=== PATIENT | male | born 1965 | race Caucasian/White ===

== ENCOUNTER 2020-05-10 03:38 | Emergency (ER) | payer OTHER ==
--- OUTSIDE RECORDS SUMMARY | 2020-05-10 03:46 | XMS ---
:1965 Author Organization [facility] Care Team Providers Name Role Phone Benjy Muhammad MD Unavailable Unavailable ER Unavailable Unavailable Goodman, Zachary H MD Unavailable Unavailable Goodman, Zachary H MD Unavailable Unavailable Goodman, Zachary H MD Unavailable Unavailable Goodman, Zachary H MD Unavailable Unavailable Goodman, Zachary H MD Unavailable Unavailable Goodman, Zachary H MD Unavailable Unavailable Goodman, Zachary H MD Unavailable Unavailable Goodman, Zachary H MD Unavailable Unavailable Goodman, Zachary H MD Unavailable Unavailable Goodman, Zachary H MD Unavailable Unavailable Goodman, Zachary H MD Unavailable Unavailable Goodman, Zachary H MD Unavailable Unavailable Goodman, Zachary H MD Unavailable Unavailable Goodman, Zachary H MD Unavailable Unavailable Re-disclosure Warning The records that you are about to access may contain information from federally- assisted alcohol or drug abuse programs. If such information is present, then the following federally mandated warning applies: This information has been disclosed to you from records protected by federal confidentiality rules (42 CFR part 2). The federal rules prohibit you from making any further disclosure of this information unless further disclosure is expressly permitted by the written consent of the person to whom it pertains or as otherwise permitted by 42 CFR part 2. A general authorization for the release of medical or other information is NOT sufficient for this purpose. The Federal rules restrict any use of the information to criminally investigate or prosecute any alcohol or drug abuse patient.The records that you are about to access may contain highly sensitive health information, the redisclosure of which is protected by Article 27-F of the [facility] Public Health law. If you continue you may haveaccess to information: Regarding HIV / AIDS; Provided by facilities licensed or operated by the [facility] Office of Mental Health; or Provided by the [facility] Office for People With Developmental Disabilities. If such information is present, then the following [facility] mandated warning applies: This information has been disclosed to you from confidential records which are protected by state law. State law prohibits you from making any further disclosure of this information without the specific written consent of the person to whom it pertains, or as otherwise permitted by law. Any unauthorized further disclosure in violation of state law may result in a fine or assisted sentence or both. A general authorization for the release of medical or other information is NOT sufficient authorization for further disclosure. Allergies and Adverse Reactions Type Description Substance Reaction Status Data Source(s ) Drug allergy No Known Medication No Known Medication [facility] Allergies Allergies [place] [facility] Encounters Encounter Providers Location Date Indications Data Source(s ) Emergency Attender: Benjy 04/24/2019 [facility] Larissa Muhammad MDAttender: 01:06:00 PM EDT Brian Montes MD ERAdmitter: - 04/24/2019 [facility] Benjy Muhammad MD 06:13:00 PM EDT Patient discharged. Emergency Attender: Prema Rodriguez 02/09/2019 10:45:00 AM [facility] Barbara: EDT - 02/09/2019 Christian Montes ERAdmitter: Prema Rodriguez 01:22:00 PM T [facility] Medications Medication Brand Start Product Dose Route Administrative Pharmacy [facility] Indications Reaction Description Data Name Date Form Instructions Instructions Source(s) colchicine [id number] 04/24/ 0.6 Oral Nuvan ce 0.6 mg oral 2019 mg 0. 6 mg, = 1 tab, Oral, BID, # 10 tab, 0 Refill(s), for gout pain, Pharmacy: [facility]/pharmacy #[id number], 1 tab Oral BID,PRN:for gout pain Health - tablet 06:40: Brian 34 PM [facility] indomethaci [id number] .0 Oral Nuva nce n 25 mg 2019 mg 25 mg, = 1 cap, Oral, TID, # 30 cap, 0 Refill(s), for gout pain, Pharmacy: [facility]/pharmacy #[id number], 1 cap Oral TID,PRN:for gout pain Health - oral 04:58: [place] capsule 00 PM [facility] Insurance Providers Payer name Policy type Policy ID Covered Covered democrat's Policy P janes / Coverage democrat ID relationship to [employer] ormation type [employer] [id number] FIRST Problems, Conditions, and Diagnoses Code Display Name Description Problem Type Effective Dates Data Source(s) M25.562 Pain in left Pain in left knee Diagnosis 04/24/2019 [facility] - knee 01:06:00 PM EDT [facility] Results ID Date Data Source [id number] 04/24/2020 11:23:00 AM EDT [facility] Name Value Range Interpretation Description Data Sup porting Code Source(s) Document(s ) SARS [facility] coronavirus 2 RNA This lab was ordered by [facility] ital and reported by [facility]. ID Date Data Source [id number] 02/17/2020 11:38:00 AM EDT [facility] Name Value Range Interpretation Description Data Sup porting Code Source(s) Document(s ) SARS [facility] coronavirus 2 RNA This lab was ordered by [facility] ital and reported by [facility]. ID Date Data Source [id number] 04/24/2019 04:36:[address] [facility] Name Value Range Interpretation Description Data Sup porting Code Source(s) Document(s ) Uric Acid 7.7 mg/dL 2.3-7.[address] [facility] ID Date Data Source [id number] 04/24/2019 04:36:[address] [facility] Name Value Range Interpretation Description Data Sup porting Code Source(s) Document(s ) Glucose Lvl 104 65-99 HI [place] mg/dL [facility] BUN 11.0 6.0-20.0 NO [place] mg/dL [facility] Creatinine 1.03 0.70-1.2 NO [place] mg/dL 0 [facility] BUN/Creat 10.7 7.0-29.0 [place] Ratio ratio [facility] Sodium Lvl 136 136-145 NO [place] mmol/L [facility] Potassium Lvl 4.2 3.5-5.1 NO [place] mmol/L [facility] Chloride 103 98-107 NO [place] mmol/L [facility] CO2 27 23-29 NO [place] mmol/L [facility] AGAP 6 5-[address] [facility] Calcium Lvl 9.6 8.6-10.0 NO [place] mg/dL [facility] Total Protein 7.5 6.0-8.3 NO [place] gm/dL [facility] Albumin Lvl 3.8 3.5-5.0 NO [place] gm/dL [facility] Glob 3.7 2.0-4.5 NO [place] gm/dL [facility] A/G Ratio 1.0 1.0-2.[address] [place] [address] [facility] Bili Total 0.7 0.3-1.2 NO [place] mg/dL [facility] Alk Phos 91 IU/L 38-[address] [facility] AST 20 IU/L 15-[address] [facility] ALT 30 IU/L 7-[address] [facility] ID Date Data Source [id number] 04/24/2019 04:29:[address] [facility] Added by Discern Rule GLB_ADD_GFR_CMP Name Value Range Interpretation Code Description Data Catarina rce(s) Supporting Document(s ) eGFR-AA >60 >=60 NO [facility] Health mL/min/[address] eGFR-MORENO >60 >=60 [facility]/[address] [place] [address] ID Date Data Source [id number] 04/24/2019 04:19:[address] [facility] Name Value Range Interpretation Description Data Sup porting Code Source(s) Document(s ) Neut Auto 75.1 % 50.0-80.[address] [facility] Lymph Auto 13.5 % 14.0-44.[address] [facility] [place] Auto 10.6 % 0.0-12.[address] [facility] Eos Auto 0.4 % 0.0-7.[address] [facility] Baso Auto 0.4 % 0.0-3.[address] [facility] Neut 5.6 2.0-8.4 NO [place] Absolute x10(3)/[facility] Lymph 1.0 0.6-4.8 NO [place] Absolute x10(3)/[facility] [place] 0.8 0.0-1.1 NO [place] Absolute x10(3)/[facility] Eos Absolute 0.0 0.0-0.5 NO [place] x10(3)/[facility] Baso 0.0 0.0-0.3 NO [place] Absolute x10(3)/[facility] ID Date Data Source [id number] 04/24/2019 04:19:[address] [facility] Name Value Range Interpretation Description Data Sup porting Code Source(s) Document(s ) WBC 7.4 4.0-10.5 NO [place] x10(3)/[facility] RBC 4.95 4.70-6.00 NO [place] x10(6)/[facility] Hgb 14.9 13.5-17.0 NO [place] gm/dL [facility] Hct 44.3 % 38.0-51.[address] [facility] MCV 90 fL 80-[address] [facility] MCH 30.2 pg 26.0-34.[address] [facility] MCHC 33.7 32.0-36.0 NO [facility] gm/dL [facility] RDW 12.8 % 11.0-15.[address] [facility] Platelet 234 150-400 NO [facility] x10(3)/[facility] MPV 8.3 fL 8.5-13.[address] [facility] ID Date Data Source [id number] 05/01/2019 02:05:[address] [facility] 1965 [phone] Microbiology - Wound/Misc CulturesPROCED URE: Culture,Body Fluid with Gram StainSOURCE: Joint Fl ENA DY SITE: Knee LeftCOLLECTED DATE/TIME: 04/24/2019 15:55 EDT RECEIVED DATE/TIME: 04/24/2019 16:01 EDTSTART DATE/TIME: 04/24/2019 1 6:01 EDT FREE TEXT SOURCE:ORDERING PHYSICIAN: Jb AYALA, Benjy Johnson* FINAL REPORTSFinal Report []Reported Date/Time: 05/01/2019 14:05 EDTNo growth aerobically or anaerobically in 7 days.PRELIMINARY REPORTSPreliminar y Report []Reported Date/Time: 04/29/2019 11:28 EDTNo growth aerobically or anaero bically in 5 days. Continuing incubationPreliminary Report []Reported Date/Time: 04/28/2019 08:34 EDTNo growth aerobically or anaerobically in 4 days. Continuing incubationPreliminary Report []Reported Date/Time: 04/27/2019 08:55 ED TThis culture is in progress and is being reincubated Continuing incubationPrelim inary Report []Reported Date/Time: 04/26/2019 10:17 EDTNo growth aerobically or anaero bically in 2 days. Continuing incubationPreliminary Report []Reported Date/Time: 04/25/2019 11:30 EDTNo growth to date Continuing incubationSTAINSG S []Reported Date/Time: 04/24/2019 16:43 EDTModerate White Blood Cells No organi sms seen. Name Value Range Interpretation Code Description Data Catarina rce(s) Supporting Document(s ) ID Date Data Source [id number] 04/27/2019 07:20:[address] [facility] Name Value Range Interpretation Code Description Data Catarina rce(s) Supporting Document(s ) Uric Acid <8.0 NA [facility] This test [facility] performed at[facility] [place], [place] BF Laterality NA [facility] ID Date Data Source [id number] 04/24/2019 05:49:[address] [facility] Name Value Range Interpretation Description Data Sup porting Code Source(s) Document(s ) Crystal BF Type NO [facility] Crystal BF NO [facility] Crystal Desc NO [facility] BF Laterality NA [facility] ID Date Data Source [id number] 04/24/2019 04:39:[address] [facility] Name Value Range Interpretation Description Data Sup porting Code Source(s) Document(s ) Color BF [address] [facility] Appear BF [address] [facility] WBC BF 1 09075 0-200 HI [facility] cells/[facility] RBC BF 1 7574 0-200 HI [facility] cells/[facility] BF Type Tube [address] [facility] BF Laterality [facility] Procedure Social History Code Duration Value Status Description Data Source(s ) Smoking 04/24/2019 Never smoked completed Never smoked Itajarosojuan manuel alth - 03:47:35 PM EDT tobacco tobacco (finding) [facility] (finding) [facility] Vital Signs ID Date Data Source UNK Name Value Range Interpretation Code Description Data Source(s) Respiratory rate 17 br/min 14-20 Normal (applies to 17 br/min [facility] br/min non-numeric results) - [facility] Mean blood 114 mm[Hg] 114 mm[Hg] [facility] pressure by - [facility] Diastolic blood 92 mm[Hg] 60-90 mmHg 92 mm[Hg] [facility] ealth pressure - [facility] Systolic blood 159 mm[Hg] 90-130 mmHg Above high normal 159 mm[Hg] [facility] pressure - [facility] Oxygen saturation 96 % 94-100 % Normal (applies to 96 % [facility] [employer] in Blood non-numeric results) - [facility] Postductal by [place] Pulse oximetry Medical nter Heart rate 90 bpm 60-100 bpm Normal (applies to 90 bpm [facility] non-numeric results) - [facility] Body weight 95.55 kg 95.55 kg [facility] Measured - [facility] Body height 173 cm 173 cm [facility] - [facility] Body mass index 31.93 kg/m2 31.93 kg/m2 [facility] (BMI) [Ratio] - [facility] Oxygen saturation 96 % 94-100 % Normal (applies to 96 % [facility] [employer] in Blood non-numeric results) - [facility] Postductal by [place] Pulse oximetry Medical nter Respiratory rate 19 br/min 14-20 Normal (applies to 19 br/min [facility] br/min non-numeric results) - [facility] Heart rate 113 bpm 60-100 bpm Above high normal 113 bpm [facility] - [facility] Body mass index 31.93 kg/m2 31.93 kg/m2 [facility] (BMI) [Ratio] - [facility] Oral temperature 99 [degF] 96.4-99.1 Normal (applies to 99 [degF] [facility] DegF non-numeric results) - [facility] Diastolic blood 91 mm[Hg] 60-90 mmHg Above high normal 91 mm[Hg] [facility] pressure - [facility] Systolic blood 156 mm[Hg] 90-130 mmHg Above high normal 156 mm[Hg] [facility] pressure - [facility] Patient Treatment Plan of Care Planned Activity Planned Date Details Description Data Source (s) colchicine 0.6 mg oral 04/24/2019 06:40:34 [facility] - tablet PM EDT [facility] indomethacin 25 mg oral 04/24/2019 04:58:00 [employer] - capsule PM EDT [facility]
[2020-05-10] MEDS ORDERED: LIDOCAINE 5% TOPICAL PATCH TP ONE (03:52)
[2020-05-10] MEDS ORDERED: diazePAM 2 MG TABLET PO ONE (03:52)
[2020-05-10] MEDS ORDERED: KETOROLAC TROMETHAMINE 60 MG/2 ML VIAL IM ONE (03:53)
--- NOTE | 2020-05-10 03:55 | PDOC ---
History of Present Illness - General Chief Complaint: Pain, Acute Stated Complaint: PAIN Time Seen by Provider: 05/10/20 03:54 - History of Present Illness Initial Comments: 54 YOM h/o HLD, HTN, CAD on stent on brilinta presents with head pain and abdominal pain since yesterday. Patient reports he has pain in the back of his head and neck which is worse with lateral rotation of his head. Denies trauma to the area, no radiation, never had pain like this before. He reports his abdominal pain is located in lower abdomen, is worse with rising from bed or sitting or attempting to defecate. Reports last bm was yesterday, still passing flatus. Concerns he is constipated. Denies fever or chills, N/V/D, chest pain or shortness of breath. Constitutional: No Weight Change, No Fever, No Chills, No Night Sweats, No Fatigue, No Malaise ENT/Mouth: No Hearing Changes, No Ear Pain, No Nasal Congestion, No Sinus Pain, No Hoarseness, No sore throat, No Rhinorrhea, No Swallowing Difficulty Eyes: No Eye Pain, No Swelling, No Redness, No Foreign Body, No Discharge, No Vision Changes Cardiovascular: No Chest Pain, No SOB, No PND, No Dyspnea on Exertion, No Orthopnea, No Claudication, No Edema, No Palpitations Respiratory: No Cough, No Sputum, No Wheezing, No Smoke Exposure, No Dyspnea Gastrointestinal: No Nausea, No Vomiting, No Diarrhea, No Constipation, No Pain, No Heartburn, No Anorexia, No Dysphagia, No Hematochezia, No Melena, No Flatulence, No Jaundice Genitourinary: No Dyspareunia, No Dysuria, No Urinary Frequency, No Hematuria, No Urinary Incontinence, No Urgency, No Flank Pain, No Urinary Flow Changes, No Hesitancy Musculoskeletal: No Arthralgias, No Myalgias, No Joint Swelling, No Joint Stiffness, No Back Pain, No Neck Pain, No Injury History Skin: No Skin Lesions, No Pruritis, No Hair Changes, No Breast/Skin Changes, No Nipple Discharge Neuro: No Weakness, No Numbness, No Paresthesias, No Loss of Consciousness, No Syncope, No Dizziness, No Headache, No Coordination Changes, No Recent Falls Psych: No Anxiety/Panic, No Depression, No Insomnia, No Personality Changes, No Delusions, No Rumination, No SI/HI/AH/VH, No Social Issues, No Memory Changes, No Violence/Abuse Hx., No Eating Concerns Heme/Lymph: No Bruising, No Bleeding, No Transfusions History, No Lymphadenopathy Endocrine: No Polyuria, No Polydipsia, No Temperature Intolerance Past History - Medical History Allergies/Adverse Reactions: Allergies Allergy/AdvReac Type Severity Reaction Status Date / Time No Known Allergies Allergy Verified 05/10/20 03:54 Home Medications: Ambulatory Orders Amoxicillin - [Amoxicillin 250mg Capsule -] 250 mg PO ASDIR 04/03/16 Oxycodone HCl/Acetaminophen [Percocet 5-325 mg Tablet] 1 - 2 tab PO Q4H 04/03/16 HTN: Yes (no meds) - Immunization History Immunization Up to Date: Yes - Psycho-Social/Smoking History Smoking History: Never smoked *Physical Exam - Physical Exam General Appearance: Yes: Nourished, Appropriately Dressed, Mild Distress HEENT: positive: EOMI, FREDA, Normal ENT Inspection, Normal Voice, Symmetrical, TMs Normal, Pharynx Normal, Other (patient is ttp at posterior head on right side) Neck: positive: Trachea midline, Normal Thyroid Respiratory/Chest: positive: Lungs Clear, Normal Breath Sounds Cardiovascular: positive: Regular Rhythm, Regular Rate, S1, S2 Gastrointestinal/Abdominal: positive: Normal Bowel Sounds, Tender, Flat, Soft, Tenderness Musculoskeletal: positive: Normal Inspection, CVA Tenderness Extremity: positive: Normal Capillary Refill, Normal Inspection Integumentary: positive: Normal Color, Dry, Warm Neurologic: positive: head of maintenance II-XII NML intact, Fully Oriented, Alert, Normal Mood/Affect, Normal Response, Motor Strength 5/5 Medical Decision Making - Medical Decision Making 54 YOM h/o htn, hld, CAD w stent presents with head pain and abdominal pain - vitals wnl - exam reveals ttp in posterior right head and suprapubic - will do upright and flat radiograph, miralax, docusate, toradol for pain control and reassess 05/10/20 06:40 Patient reports that pain is decreased by 50% after receiving pain meds Does not yet express the urge to defecate XR wnl will dc patient to follow up with pcp Discharge - Discharge Information Problems reviewed: Yes Clinical Impression/Diagnosis: Abdominal pain Condition: Good Disposition: HOME - Admission No - Follow up/Referral - Patient Discharge Instructions Patient Printed Discharge Instructions: Constipation Additional Instructions: You were seen in the ER for posterior head pain and constipation/abdominal pain. While here you received and XRAY of your chest and abdomen as well as a urinanalysis. You also received pain medication for you symptoms. Your xray and urinanalysis were unremarkable. You reported that your pain had decreased by 50%. You were considered medically stable and safe to return home. When you return home you may use over the counter pain medication to control you head pain. Please follow the instructions on the label and dont take more than the recommended dose. To address your constipation you you make take miralaxx and docusate senna, please follow the instructions on the label and dont take more than the recommended dose. If your symptoms persist please follow up with your primary care provider. WHAT YOU NEED TO KNOW: Constipation is when you have hard, dry bowel movements, or you go longer than usual between bowel movements. DISCHARGE INSTRUCTIONS: Call your doctor if: You have blood in your bowel movements. You have a fever and abdominal pain with the constipation. Your constipation gets worse. You start to vomit. You have questions or concerns about your condition or care. Medicines: Medicine such as a laxative may help relax and loosen your intestines to help you have a bowel movement. Your provider may recommend you only use laxatives for a short time. Long-term use may make your bowels dependent on the medicine. Take your medicine as directed. Contact your healthcare provider if you think your medicine is not helping or if you have side effects. Tell him of her if you are allergic to any medicine. Keep a list of the medicines, vitamins, and herbs you take. Include the amounts, and when and why you take them. Bring the list or the pill bottles to follow-up visits. Carry your medicine list with you in case of an emergency. WHAT YOU NEED TO KNOW: An acute headache is pain or discomfort that starts suddenly and gets worse quickly. You may have an acute headache only when you feel stress or eat certain foods. Other acute headache pain can happen every day, and sometimes several times a day. DISCHARGE INSTRUCTIONS: Return to the emergency department if: You have severe pain. You have numbness or weakness on one side of your face or body. You have a headache that occurs after a blow to the head, a fall, or other trauma. You have a headache, are forgetful or confused, or have trouble speaking. You have a headache, stiff neck, and a fever. Contact your healthcare provider if: You have a constant headache and are vomiting. You have a headache each day that does not get better, even after treatment. You have changes in your headaches, or new symptoms that occur when you have a headache. You have questions or concerns about your condition or care. - Post Discharge Activity
[2020-05-10 03:56] VITALS: TEMP 98.3; BMI 31.1
[2020-05-10] MEDS ORDERED: diazePAM 2 MG TABLET ONE (04:02)
[2020-05-10] MEDS ORDERED: KETOROLAC TROMETHAMINE 60 MG/2 ML VIAL ONE (04:03)
[2020-05-10] MEDS ORDERED: LIDOCAINE 5% TOPICAL PATCH ONE (04:03)
[2020-05-10] MEDS ORDERED: DOCUSATE NA 100 MG/10 ML UNIT-DOSE CUPS PO ONE (04:20)
[2020-05-10] MEDS ORDERED: POLYETHYLENE GLYCOL 3350 119 GM BTL PO ONE (04:20)
[2020-05-10] MEDS ORDERED: LACTULOSE 20 GM/30 ML UDC (FOR ORAL USE ONLY) PO ONE (04:32)
[2020-05-10 04:33] LABS: EPI CELLS 0 /uL (0-25.1); HYALINE CASTS 0 /uL (0-3.1); PH,URINE 5.5 (5.0-8.0); URINE APPEARANCE CLEAR; URINE BACTERIA 1 /uL (0-1359); URINE BILIRUBIN NEGATIVE (NEGATIVE); URINE COLOR YELLOW; URINE GLUCOSE (UA) NEGATIVE (NEGATIVE); URINE KETONE NEGATIVE (NEGATIVE); URINE LEUK ESTERASE NEGATIVE (NEGATIVE); URINE NITRITE NEGATIVE (NEGATIVE); URINE PROTEIN NEGATIVE (NEGATIVE); URINE RBC 22 /uL (0-23.9); URINE UROBILINOGEN 0.2 mg/dL (0.2-1.0); URINE WBC 1 /uL (0-25.8)
[2020-05-10] MEDS ORDERED: LACTULOSE 20 GM/30 ML UDC (FOR ORAL USE ONLY) ONE (05:15)
[2020-05-10] MEDS ORDERED: DOCUSATE SODIUM 100 MG CAPSULE (FP) PO ONE (05:16)
--- NOTE | 2020-05-10 05:45 | PDOC ---
Attending Attestation - Resident Resident Name: Nestor Stockton - ED Attending Attestation I have performed the following: I have examined & evaluated the patient, The case was reviewed & discussed with the resident, I agree w/resident's findings & plan - HPI HPI: 05/10/20 05:40 Pt comes with neck pain and 1 day of constipation. Pt has no hx of abd surg and he has no hx of heavy liftin, groin pain or hernia ventral or umbilical or otherwise. - Physicial Exam PE: 05/10/20 05:44 Normal exam. Pt has no rebound and no guarding. Pt has no flank pain heart and lungs normal no ext swelling heent: normal - Medical Decision Making 05/10/20 05:45 Pt will have a UA because he mentions that he has to push to pee also he will get pain meds and mm relaxants for the pain he will get a KUB to eval his abdomen and constipation 05/10/20 06:49 FUA normal; pt will be discharged home Discharge - Discharge Information Problems reviewed: Yes Clinical Impression/Diagnosis: Muscle spasms of neck Constipated Qualifiers: Constipation type: unspecified constipation type Qualified Code(s): K59.00 - Constipation, unspecified Abdominal pain Qualifiers: Abdominal location: generalized Qualified Code(s): R10.84 - Generalized abdominal pain Condition: Good Disposition: HOME - Additional Discharge Information Prescriptions: Lidocaine 5% Patch [Lidoderm Patch -] 1 patch TP DAILY #30 patch - Follow up/Referral - Patient Discharge Instructions Patient Printed Discharge Instructions: Eating a Diet Rich in Fruits and Vegetables, Constipation, DI for Muscle Spasm Additional Instructions: You were seen in the ER for posterior head pain and constipation/abdominal pain. While here you received and XRAY of your chest and abdomen as well as a urinanalysis. You also received pain medication for you symptoms. Your xray and urinanalysis were unremarkable. You reported that your pain had decreased by 50%. You were considered medically stable and safe to return home. When you return home you may use over the counter pain medication to control you head pain. Please follow the instructions on the label and dont take more than the recommended dose. To address your constipation you you make take miralaxx and docusate senna, please follow the instructions on the label and dont take more than the recommended dose. If your symptoms persist please follow up with your primary care provider. WHAT YOU NEED TO KNOW: Constipation is when you have hard, dry bowel movements, or you go longer than usual between bowel movements. DISCHARGE INSTRUCTIONS: Call your doctor if: You have blood in your bowel movements. You have a fever and abdominal pain with the constipation. Your constipation gets worse. You start to vomit. You have questions or concerns about your condition or care. Medicines: Medicine such as a laxative may help relax and loosen your intestines to help you have a bowel movement. Your provider may recommend you only use laxatives for a short time. Long-term use may make your bowels dependent on the medicine. Take your medicine as directed. Contact your healthcare provider if you think your medicine is not helping or if you have side effects. Tell him of her if you are allergic to any medicine. Keep a list of the medicines, vitamins, and herbs you take. Include the amounts, and when and why you take them. Bring the list or the pill bottles to follow-up visits. Carry your medicine list with you in case of an emergency. WHAT YOU NEED TO KNOW: An acute headache is pain or discomfort that starts suddenly and gets worse quickly. You may have an acute headache only when you feel stress or eat certain foods. Other acute headache pain can happen every day, and sometimes several times a day. DISCHARGE INSTRUCTIONS: Return to the emergency department if: You have severe pain. You have numbness or weakness on one side of your face or body. You have a headache that occurs after a blow to the head, a fall, or other trauma. You have a headache, are forgetful or confused, or have trouble speaking. You have a headache, stiff neck, and a fever. Contact your healthcare provider if: You have a constant headache and are vomiting. You have a headache each day that does not get better, even after treatment. You have changes in your headaches, or new symptoms that occur when you have a headache. You have questions or concerns about your condition or care. - Post Discharge Activity Work/Back to School Note: Back to Work
[2020-05-10 06:56] VITALS: BP 113/82; PULSE 62
[2020-05-10] MEDS ORDERED: LIDOCAINE PATCH REMOVAL MC SCH (22:00)
== END 2020-05-10 06:58 | disposition home or self-care (01) ==
LOC: JER 03:38
PROC: 3E0233Z Introduction of Anti-inflammatory into Muscle, Percutaneous Approach (ICD-10-PCS; principal; 2020-05-10)
PROC: 3E033NZ Introduction of Analgesics, Hypnotics, Sedatives into Peripheral Vein, Percutaneous Approach (ICD-10-PCS; 2020-05-10)
PROC: 3E033GC Introduction of Other Therapeutic Substance into Peripheral Vein, Percutaneous Approach (ICD-10-PCS; 2020-05-10)
DX: R10.9 Unspecified abdominal pain (principal)
CPT/HCPCS: 74019-TC-FY; 81003; 99285-25

== ENCOUNTER 2020-05-10 12:25 | Emergency (ER) | payer OTHER ==
--- NOTE | 2020-05-10 12:40 | PDOC ---
History of Present Illness - General Chief Complaint: Pain Stated Complaint: ABD PAIN Time Seen by Provider: 05/10/20 12:39 - History of Present Illness Initial Comments: 05/10/20 12:50 54yo M w/ PMHx 3stents at [facility]) this summer and presented this AM for the same lower ABD discomfort and constipation bounces back today with worsening lower ABD pain and inability to have a BM. He reports a small BM yesterday that did not feel like he emptied completely. Reports no hx of kidney stones, pain w/ urination, incomplete emptying except for today. No recent illness, fever, rash, or sore throat 05/10/20 13:31 Past History - Medical History Allergies/Adverse Reactions: Allergies Allergy/AdvReac Type Severity Reaction Status Date / Time No Known Allergies Allergy Verified 05/10/20 12:31 Home Medications: Ambulatory Orders Docusate Sodium [Colace] 100 mg PO HS #60 capsule MDD 1 05/10/20 Lidocaine 5% Patch [Lidoderm Patch -] 1 patch TP DAILY #30 patch 05/10/20 Polyethylene Glycol 3350 [Miralax (For Bowel Prep) -] 255 gm PO DAILY 30 Days #1 btl 05/10/20 COPD: No HTN: Yes (no meds) - Immunization History Immunization Up to Date: Yes - Psycho-Social/Smoking History Smoking History: Never smoked Have you smoked in the past 12 months: No Review of Systems - Review of Systems Able to Perform ROS?: Yes Is the patient limited Kinyarwanda proficient: Yes Constitutional: Yes: Night Sweats (on presentation only). No: Chills, Diaphoresis, Fever HEENTM: No: Recent change in vision, Throat Swelling Respiratory: No: Cough, Shortness of Breath Cardiac (ROS): No: Symptoms Reported, Chest Pain ABD/GI: Yes: Symptoms Reported, Abd. Pain w/ defecation (pain when trying to have a BM today), Constipated, Nausea, Vomiting, Abdominal cramping (severe, intermittent). No: Diarrhea, Indigestion : Yes: Hematuria (microscopic - this is because of her UA on prior presentation). No: Burning, Dysuria, Testicular Swelling, Testicular Pain Musculoskeletal: No: Back Pain, Muscle Pain Integumentary: No: Bruising, Change in Color, Rash Neurological: No: Headache, Numbness Endocrine: No: Symptoms Reported Hematologic/Lymphatic: No: Symptoms Reported All Other Systems: Reviewed and Negative *Physical Exam - Vital Signs Last Vital Signs Temp Pulse Resp BP Pulse Ox 98 F 87 18 150/95 99 05/10/20 12:28 05/10/20 12:28 05/10/20 12:28 05/10/20 12:28 05/10/20 12:28 - Physical Exam General Appearance: Yes: Nourished, Appropriately Dressed, Mild Distress HEENT: positive: FREDA, Normal Voice, Hearing Grossly Normal Neck: positive: Trachea midline, Supple Respiratory/Chest: positive: Lungs Clear, Normal Breath Sounds. negative: Chest Tender, Respiratory Distress Cardiovascular: positive: Regular Rhythm, Regular Rate Gastrointestinal/Abdominal: positive: Decreased BS, Protuberent, Distended. negative: Normal Bowel Sounds, Pulsatile Mass Musculoskeletal: positive: Normal Inspection. negative: CVA Tenderness, CVA Tenderness (R), CVA Tenderness (L) Extremity: positive: Normal Capillary Refill, Normal Inspection, Normal Range of Motion Integumentary: positive: Normal Color, Warm, Clammy Neurologic: positive: Fully Oriented, Alert, Normal Response, Motor Strength 5/5 Procedures - Additional Procedures Progress: 05/10/20 18:45 Manual disimpaction + 2 fleet enemas resulted in loosening of the "plug." He reports great relief and easy urination. Heart Score/ECG Review - Electrocardiogram EKG: Normal ED Treatment Course - LABORATORY CBC & Chemistry Diagram: 05/10/20 13:20 05/10/20 13:20 Medical Decision Making - Medical Decision Making 05/10/20 14:08 54yo M bounceback lower ABD pain and no BM w/ XRAY showing dilated bowel loops. Pt reports urge to defecate but cannot produce stool. pt dry heaved multiple times during interview -> zofran no pain w/ urination, hx of kidney stones, gross hematuria, renal fxn good -> unlikely kidney stone. no hx prostate exam -> possible BPH. however, no incomplete emptying lactate normal, no hx of AF -> unlikely mesenteric ischemia. not passing gas, no BM, lower ABD pain - working up SBO vs constipation. 05/10/20 14:29 05/10/20 16:03 CT read: large fecal retention. will try glycerin suppository and PO lactulose and reassess. 05/11/20 13:34 disimpaction successful to loosen fecal plug -> pt was able to move bowels somewhat. feels tremendous relief. will DC. Discharge - Discharge Information Problems reviewed: Yes Clinical Impression/Diagnosis: Fecal impaction Disposition: HOME - Admission No - Additional Discharge Information Prescriptions: Docusate Sodium [Colace] 100 mg PO HS #60 capsule MDD 1 Polyethylene Glycol 3350 [Miralax (For Bowel Prep) -] 255 gm PO DAILY 30 Days #1 btl - Follow up/Referral Referrals: Fabiola Sue MD [Primary Care Provider] - Balwinder Kim MD [Staff Physician] - - Patient Discharge Instructions Patient Printed Discharge Instructions: DI for Fecal Impaction, Fecal Impaction Additional Instructions: You were seen in the ED today for fecal impaction. We manually disimpacted part of your stool burden, but there is a large volume remaining. Please start taking daily Miralax until you successfully evacuate your bowels. You may use an enema to assist with the passage of your stool burden. Please come back if the symptoms return. Please follow up with Dr Kim within 48hours of leaving the ED today. - Post Discharge Activity
[2020-05-10 12:45] VITALS: BMI 31.1
--- OUTSIDE RECORDS SUMMARY | 2020-05-10 12:48 | XMS ---
:1965 Author Organization [facility] Care Team Providers Name Role Phone Benjy Muhammad MD Unavailable Unavailable ER Unavailable Unavailable Laporte, Zachary H MD Unavailable Unavailable Laporte, Zachary H MD Unavailable Unavailable Laporte, Zachary H MD Unavailable Unavailable Laporte, Zachary H MD Unavailable Unavailable Laporte, Zachary H MD Unavailable Unavailable Laporte, Zachary H MD Unavailable Unavailable Laporte, Zachary H MD Unavailable Unavailable Laporte, Zachary H MD Unavailable Unavailable Laporte, Zachary H MD Unavailable Unavailable Laporte, Zachary H MD Unavailable Unavailable Laporte, Zachary H MD Unavailable Unavailable Laporte, Zachary H MD Unavailable Unavailable Laporte, Zachary H MD Unavailable Unavailable Laporte, Zachary H MD Unavailable Unavailable Re-disclosure Warning [...] is protected by Article 27-F of the [place] State Public Health law. If you continue you may haveaccess to information: Regarding HIV / AIDS; Provided by facilities licensed or operated by the [place] [facility] Office of Mental Health; or Provided by the [facility] Office for People With Developmental Disabilities. If such information is present, then the following [facility] mandated warning applies: This information has been [...] law may result in a fine or penitentiary sentence or both. A general authorization for the release of medical or other information is NOT sufficient authorization for further disclosure. Allergies and Adverse Reactions Type Description Substance Reaction Status Data Source(s ) Drug allergy No Known Medication No Known Medication [facility] Allergies Allergies [facility] Encounters Encounter Providers Location Date Indications Data Source(s ) Emergency Attender: Benjy 04/24/2019 [facility] Larissa Muhammad MDAttender: 01:06:00 PM EDT Brian Montes MD ERAdmitter: - 04/24/[address] [facility] Benjy Muhammad MD 06:13:00 PM EDT Patient discharged. Emergency Attender: Prema Rodriguez [facility]:45[facility]: EDT - 02/09/2019 Christian Montes ERAdmitter: Prema Rodriguez 01:22:00 PM [facility] [place] Medications Medication Brand Start Product Dose Route Administrative Pharmacy [facility] Indications Reaction Description Data Name Date Form Instructions Instructions Source(s) colchicine [id number] 04/24/ 0.6 Oral Nuvan ce 0.6 mg oral 2019 mg 0. 6 mg, = 1 tab, Oral, BID, # 10 tab, 0 Refill(s), for gout pain, Pharmacy: [id number], 1 tab Oral BID,PRN:for gout pain Health - tablet 06:40: Brian 34 PM [facility] indomethaci [id number] .[id number] Oral Nuva nce n 25 mg 2019 mg 25 mg, = 1 cap, Oral, TID, # 30 cap, 0 Refill(s), for gout pain, Pharmacy: [id number], 1 cap Oral TID,PRN:for gout pain Health - oral 04:58: [employer] capsule 00 PM [facility] Insurance Providers Payer name Policy type Policy ID Covered Covered libertarian's Policy P janes / Coverage libertarian ID relationship to [employer] ormation type [employer] [id number] FIRST Problems, Conditions, and Diagnoses Code Display Name Description Problem Type Effective Dates Data Source(s) M25.562 Pain in left Pain in left knee Diagnosis 04/24/2019 [facility] Health - knee 01:06:00 PM EDT [facility] Results ID Date Data Source [id number] 04/24/2020 11:23:00 AM EDT [facility] Name Value Range Interpretation Description Data Sup porting Code Source(s) Document(s ) SARS [facility] coronavirus 2 RNA This lab was ordered by [facility] ital and reported by [facility]. ID Date Data Source [id number] 02/17/2020 11:38:00 AM EDT [facility] Name Value Range Interpretation Description Data Sup porting Code Source(s) Document(s ) SARS [facility] coronavirus 2 RNA This lab was ordered by [facility] ital and reported by [facility]. ID Date Data Source [id number] 04/24/2019 04:36:00 PM EDT [facility] Name Value Range Interpretation Description Data Sup porting Code Source(s) Document(s ) Uric Acid 7.7 mg/dL 2.3-7.6 HI [facility] ID Date Data Source [id number] 04/24/2019 04:36:00 PM EDT [facility] Name Value Range Interpretation Description Data Sup porting Code Source(s) Document(s ) Glucose Lvl 104 65-99 HI [place] mg/dL [facility] BUN 11.0 6.0-20.0 NO [place] mg/dL [facility] Creatinine 1.03 0.70-1.2 NO [place] mg/dL 0 [facility] BUN/Creat 10.7 7.0-29.0 NO [place] Ratio ratio [facility] Sodium Lvl 136 136-145 NO [place] mmol/L [facility] Potassium Lvl 4.2 3.5-5.1 NO [place] mmol/L [facility] Chloride 103 98-107 NO [place] mmol/L [facility] CO2 27 23-29 NO [place] mmol/L [facility] AGAP 6 5-[address] [facility] Calcium Lvl 9.6 8.6-10.0 NO [place] mg/dL [facility] Total Protein 7.5 6.0-8.3 NO [place] gm/dL [facility] Albumin Lvl 3.8 3.5-5.0 NO [place] gm/dL [facility] Glob 3.7 2.0-4.5 NO [place] gm/dL [facility] A/G Ratio 1.0 1.0-2.[address] [address] [facility] Bili Total 0.7 0.3-1.2 NO [place] mg/dL [facility] Alk Phos 91 IU/L 38-126 NO [facility] AST 20 IU/L 15-41 NO [facility] ALT 30 IU/L 7-40 NO [facility] ID Date Data Source [id number] 04/24/2019 04:29:00 PM EDT [place] Added by Discern Rule [id number]_GFR_CMP Name Value Range Interpretation Code Description Data Catarina rce(s) Supporting Document(s ) eGFR-AA >60 >=60 NO [facility] mL/min/[address] eGFR-MORENO >60 >=60 NO [facility] mL/min/[address] ID Date Data Source [id number] 04/24/2019 04:19:00 PM EDT [facility] Name Value Range Interpretation Description Data Sup porting Code Source(s) Document(s ) Neut Auto 75.1 % 50.0-80.0 NO [facility] Lymph Auto 13.5 % 14.0-44.0 LO [facility] Taylor Auto 10.6 % 0.0-12.0 NO [facility] Eos Auto 0.4 % 0.0-7.0 NO [facility] Baso Auto 0.4 % 0.0-3.0 NO [facility] Neut 5.6 2.0-8.4 NO [place] Absolute x10(3)/[facility] Lymph 1.0 0.6-4.8 NO [place] Absolute x10(3)/[facility] Taylor 0.8 0.0-1.1 NO [place] Absolute x10(3)/[facility] Eos Absolute 0.0 0.0-0.5 NO [place] x10(3)/[facility] Baso 0.0 0.0-0.3 NO [place] Absolute x10(3)/[facility] ID Date Data Source [id number] 04/24/2019 04:19:00 PM EDT [facility] Name Value Range Interpretation Description Data Sup porting Code Source(s) Document(s ) WBC 7.4 4.0-10.5 NO [place] x10(3)/[facility] RBC 4.95 4.70-6.00 NO [place] x10(6)/[facility] Hgb 14.9 13.5-17.0 NO [place] gm/dL [facility] Hct 44.3 % 38.0-51.0 NO [facility] MCV 90 fL 80-98 NO [facility] MCH 30.2 pg 26.0-34.0 NO [facility] MCHC 33.7 32.0-36.0 NO Tere gm/dL [facility] RDW 12.8 % 11.0-15.0 NO [facility] Platelet 234 150-400 NO [facility] x10(3)/mc [facility] MPV 8.3 fL 8.5-13.0 LO [facility] ID Date Data Source [id number] 05/01/2019 02:05:00 PM EDT [facility] 1965 [phone] Microbiology - Wound/Misc [...] Supporting Document(s ) ID Date Data Source [id number] 04/27/2019 07:20:00 AM EDT [facility] Name Value Range Interpretation Code Description Data Catarina rce(s) Supporting Document(s ) Uric Acid <8.0 NA [facility] [place], [place] BF Laterality NA [facility] ID Date Data Source [id number] 04/24/2019 05:49:00 PM EDT [facility] Name Value Range Interpretation Description Data Sup porting Code Source(s) Document(s ) Crystal BF Type NO [facility] Crystal BF NO [facility] Crystal Desc NO [facility] BF Laterality NA [facility] ID Date Data Source [id number] 04/24/2019 04:39:00 PM EDT [facility] Name Value Range Interpretation Description Data Sup porting Code Source(s) Document(s ) Color BF 1 NO [facility] Appear BF 1 Clear AB [facility] WBC BF 1 59229 0-200 HI [facility] cells/[facility] RBC BF 1 7574 0-200 HI [facility] cells/[facility] BF Type Tube 1 NA [facility] BF Laterality NA [facility] Procedure Social History Code Duration Value Status Description Data Source(s ) Smoking 04/24/2019 Never smoked completed Never smoked [facility] alth - 03:47:35 PM EDT tobacco tobacco (finding) [facility] (finding) [facility] Vital Signs ID Date Data Source UNK Name Value Range Interpretation Code Description Data Source(s) Respiratory rate 17 br/min 14-20 Normal (applies to 17 br/min [employer] br/min non-numeric results) - [facility] Mean blood 114 mm[Hg] 114 mm[Hg] [facility] pressure by - [facility] Diastolic blood 92 mm[Hg] 60-90 mmHg 92 mm[Hg] [facility] ealth pressure - [facility] Systolic blood 159 mm[Hg] 90-130 mmHg Above high normal 159 mm[Hg] [facility] pressure - [facility] Oxygen saturation 96 % 94-100 % Normal (applies to 96 % [facility] [employer] in Blood non-numeric results) - [facility] Postductal by [place] Pulse oximetry Medical nter Heart rate 90 bpm 60-100 bpm Normal (applies to 90 bpm [facility] non-numeric results) - [facility] Body weight 95.[address] [facility] Measured - [facility] Body height [address] [facility] - [facility] Body mass index 31.93 kg/m2 31.93 kg/m2 [facility] (BMI) [Ratio] - [facility] Oxygen saturation 96 % 94-100 % Normal (applies to 96 % [facility] [employer] in Blood non-numeric results) - [facility]ductal [facility] [place] Pulse oximetry Medical Ce nter Respiratory rate 19 br/min 14-20 Normal (applies to 19 br/min [facility] br/min non-numeric results) - [facility] Heart rate 113 bpm 60-100 bpm Above high normal 113 bpm [facility] - [facility] Body mass index 31.93 kg/m2 31.93 kg/m2 [facility] (BMI) [Ratio] - [facility] Oral temperature 99 [degF] 96.4-99.1 Normal (applies to 99 [degF] [facility] DegF non-numeric results) - [facility] Diastolic blood 91 mm[Hg] 60-90 mmHg Above high normal 91 mm[Hg] [facility] pressure - [facility] Systolic blood 156 mm[Hg] 90-130 mmHg Above high normal 156 mm[Hg] [facility] Patient Treatment Plan of Care Planned Activity Planned Date Details Description Data Source (s) colchicine 0.6 mg oral 04/24/2019 06:40:34 [facility] Health - tablet PM EDT [facility] indomethacin 25 mg oral 04/24/2019 04:58:00 [facility] Health - capsule PM EDT [facility]
[2020-05-10] MEDS ORDERED: ACETAMINOPHEN 1000 MG/100 ML VIAL (NON FORMULARY) IVPB ONE ×2 (13:03→16:41)
[2020-05-10] MEDS ORDERED: LACTATED RINGERS SOLUTION 1000 ML INFUS.BAG IV ONE (13:03)
[2020-05-10] MEDS ORDERED: ACETAMINOPHEN INJECTION 100 ML IVPB ONE ×2 (13:14→17:32)
[2020-05-10] MEDS ORDERED: ONDANSETRON 4 MG/2 ML VIAL IVPUSH ONE (13:19)
[2020-05-10 13:44] LABS: BASO % 0.2 % (0-2.0); HEMATOCRIT 42.9 % (35.4-49); HEMOGLOBIN 14.7 GM/dL (11.7-16.9); LYMPH % 7.2 % (8-40); MCH 30.9 pg (25.7-33.7); MCHC 34.3 g/dl (32.0-35.9); MEAN CELL VOLUME 90.1 fl (80-96); MEAN PLT VOLUME 9.2 fl (7.5-11.1); MONO % 4.1 % (3.8-10.2); NEUT % 87.5 % (42.8-82.8); PLATELET COUNT 276 K/MM3 (134-434); RBC 4.76 M/mm3 (4.00-5.60); RDW 13.1 % (11.9-15.9); WHITE BLOOD COUNT 9.2 K/mm3 (4.0-10.0)
[2020-05-10 14:13] LABS: ALBUMIN 3.9 g/dl (3.4-5.0); ALK PHOS 126 U/L (45-117); ANION GAP 7 MMOL/L (8-16); BILIRUBIN,TOTAL 0.7 mg/dL (0.2-1); BLOOD UREA NITROGEN 18.6 mg/dL (7-18); CALCIUM 9.7 mg/dL (8.5-10.1); CHLORIDE 102 mmol/L (98-107); CO2 27 mmol/L (21-32); CREATININE 1.2 mg/dL (0.55-1.3); GLUCOSE,RANDOM 120 mg/dL (74-106); POTASSIUM 3.6 mmol/L (3.5-5.1); SGOT/AST 19 U/L (15-37); SGPT/ALT 26 U/L (13-61); SODIUM 136 mmol/L (136-145); TOT PROT 7.7 g/dl (6.4-8.2)
--- NOTE | 2020-05-10 15:33 | PDOC ---
Documentation entered by Radha Tineo SCRIBE, acting as scribe for Ramandeep Strickland MD. Ramandeep Strickland MD: This documentation has been prepared by the Rivka khan Sydney, SCRIBE, under my direction and personally reviewed by me in its entirety. I confirm that the documentation accurately reflects all work, treatment, procedures, and medical decision making performed by me. Attending Attestation - Resident Resident Name: Sajan Wilson - ED Attending Attestation I have performed the following: I have examined & evaluated the patient, The case was reviewed & discussed with the resident, I agree w/resident's findings & plan, Exceptions are as noted - HPI HPI: 05/10/20 13:06 Patient is a 54 year old male with a significant past medical history of 3 stents (at [facility]) who presents to the ED again this afternoon with the same lower abdominal discomfort and constipation he was evaluated for this morning. As per patient, he has been experiencing worsening lower abdominal pain since being discharged this morning. He reports having a small bowel movement yesterday. reports significant improvement in his symptoms after tylenol and zofran in the ED. Denies fever, chills, shortness of breath, chest pain, nausea, vomiting, diarrhea, or urinary changes. Allergies: NKDA PCP: Dr. Sue 05/10/20 15:03 - Physicial Exam PE: 05/10/20 15:06 Agree with resident exam. Patient is alert and oriented and in no acute distress. Abdomen is obese, soft, non tender, non distended without guarding or rebound. - Medical Decision Making 05/10/20 15:20 Pt presents to the ED complaining of abdominal pain and constipation. seen in the ED with negative KUB. Presents today with worsening abdominal pain and vomiting. Still unable to pass gas or have BM. Patient does feel better after reglan. CT shows fecal impaction. Patient offered disimpaction, but is currently refusing. Will treat with lactulose and mag citrate and glycerin suppositories. Patient will agree to disimpaction if those treatments are unsuccessful. 05/10/20 15:59 05/10/20 16:02 Discharge - Discharge Information Problems reviewed: Yes Clinical Impression/Diagnosis: Fecal impaction Disposition: HOME - Additional Discharge Information Prescriptions: Docusate Sodium [Colace] 100 mg PO HS #60 capsule MDD 1 Polyethylene Glycol 3350 [Miralax (For Bowel Prep) -] 255 gm PO DAILY 30 Days #1 btl - Follow up/Referral Referrals: Balwinder Kim MD [Staff Physician] - Fabiola Sue MD [Primary Care Provider] - - Patient Discharge Instructions Patient Printed Discharge Instructions: DI for Fecal Impaction, Fecal Impaction Additional Instructions: You were seen in the ED today for fecal impaction. We manually disimpacted part of your stool burden, but there is a large volume remaining. Please start taking daily Miralax until you successfully evacuate your bowels. You may use an enema to assist with the passage of your stool burden. Please come back if the symptoms return. Please follow up with Dr Kim within 48hours of leaving the ED today. - Post Discharge Activity
[2020-05-10] MEDS ORDERED: GLYCERIN 1 RECTAL SUPPOSITORY, ADULT PR ONE (16:02)
[2020-05-10] MEDS ORDERED: LACTULOSE 20 GM/30 ML UDC (FOR ORAL USE ONLY) PO ONE (16:02)
[2020-05-10] MEDS ORDERED: LACTULOSE 20 GM/30 ML UDC (FOR ORAL USE ONLY) ONE (16:05)
[2020-05-10 17:30] VITALS: PULSE 91; TEMP 97.8
[2020-05-10] MEDS ORDERED: SODIUM PHOSPHATE/NA BIPHOS 133 ML ENEMA PR ONE ×2 (17:57→18:08)
[2020-05-10 19:20] VITALS: BP 125/80
== END 2020-05-10 19:21 | disposition home or self-care (01) ==
LOC: JER 12:25
PROC: 3E0233Z Introduction of Anti-inflammatory into Muscle, Percutaneous Approach (ICD-10-PCS; principal; 2020-05-10)
PROC: 3E033NZ Introduction of Analgesics, Hypnotics, Sedatives into Peripheral Vein, Percutaneous Approach (ICD-10-PCS; 2020-05-10)
PROC: 3E033GC Introduction of Other Therapeutic Substance into Peripheral Vein, Percutaneous Approach (ICD-10-PCS; 2020-05-10)
DX: K56.41 Fecal impaction (principal)
CPT/HCPCS: 36415; 74177-TC; 80053; 82550; 82553; 83605; 84484; 85025; 99284-25; J0131; Q9967